=== PATIENT | male | born 1970 | race Caucasian/White ===

== ENCOUNTER → 2017-03-19 | Outpatient (CLI) | payer BC ==
[~2017-03-19] MED LIST: ALFU10TA30 PO
--- NOTE | 2017-03-19 08:34 | DIAGNOSTIC IMAGING REPORT ---
KUB HISTORY: 47 years Male 601.9,N41.9 follow-up exam with history of kidney stones COMPARISON: KUB radiograph 03/14/2016 TECHNIQUE: Single KUB radiograph FINDINGS: Metallic sutures are again seen within the right hemiabdomen. There is moderate volume of formed stool throughout the colon, notably within the right hemicolon. This partially obscures the renal shadows. No urolith is identified. Bowel gas pattern is nonobstructive. No fracture. IMPRESSION: No urolith identified. The above report was generated using voice recognition software. It may contain grammatical, syntax or spelling errors. Electronically signed by: Charly Bowers M.D. 03/19/2017 8:32 AM Dictated Date/Time: 03/19/2017 8:30 AM
== END | disposition home or self-care (01) ==
LOC: C.RADBC 08:09
PROVIDERS: ATTEND Urology
DX: N41.9 Inflammatory disease of prostate, unspecified (principal)